=== PATIENT | female | born 1980 | race Caucasian/White ===

== ENCOUNTER 2021-05-22 11:57 | Emergency (ER) | payer OTHER, SELFPAY ==
[2021-05-22 13:40] VITALS: BP 128/83; PULSE 80; RESP 18; TEMP 36.6; O2SAT 98; BMI 38.6
--- NOTE | 2021-05-22 14:01 | HMH.EDUTC ---
[facility] [place] Disposition Clinical Impression: COVID-19 Disposition: Home, Self-Care Condition on Discharge: Good Instructions: DI for COVID-19 (Suspected or Confirmed ), Preventing the Spread of Coronavirus Discharge Instructions Additional Instructions: Drink plenty of fluids. Take tylenol for pain or fever. Return if you begin to have difficulty breathing. Follow up with your regular doctor. GO TO THE ER FOR ANY WORSENING SYMPTOMS Quarantine until you know the results of your covid-19 test. If it is positive, the health department should call you and give you further instructions about your length of Quarantine and other things. Notify your school or workplace of your results and follow their instructions regarding return to work/school. Referrals: Tavia Wray [Primary Care Provider] - Forms: Work/School Release Time of Disposition: 14:12 Medical Decision Making - Medical Records Medical records reviewed: No: I reviewed the patient's medical records. - Alvin Inquiry Pt receiving controlled substance: No Vital Signs: 05/22/21 13:40 05/22/21 14:12 Temperature 97.9 F 97.9 F Temperature Source Oral Pulse Rate 80 Pulse Rate [Right Brachial] 80 Respiratory Rate 18 18 Blood Pressure 128/83 Blood Pressure [Right Arm] 128/83 Blood Pressure Mean [Right Arm] 98 Blood Pressure Source [Right Arm] Automatic Cuff Blood Pressure Position [Right Arm] Sitting 02 Sat by Pulse Oximetry 98 Oxygen Delivery Method Room Air [facility] [place] HPI - General Stated complaint: covid test Time Seen by Provider: 05/22/21 14:02 Mode of Arrival: Ambulatory Source of Information: Patient Limitations: No Limitations Description of Symptoms (Recalled from Triage Doc. by RN): PATIENT TESTED POSITIVE FOR COVID ON 05/12. WANTS RE-TESTED D/T FAMILY COMING IN TO VISIT HEENT Symptoms (Recalled from RN notes): No Resp Symptoms (Recalled from RN notes): No Skin Symptoms (Recalled from RN notes): No MS Symptoms (Recalled from RN notes): No Functional Status (Recalled from RN notes): WNL - History of Present Illness Provider Complaint: She needs to be tested for covid-19. She has been exposed but she denies any symptoms. She has not been vaccinated. - Related Data Allergies Allergy/AdvReac Type Severity Reaction Status Date / Time No Known Allergies Allergy Verified 05/22/21 13:55 - Worker's Comp Is this a Worker's Comp case?: No [facility] History - Hepatitis A Screen Drug use history?: No High risk sexual behaviors?: No History of sexually transmitted infection?: No Currently employed?: No Childcare worker?: No Do you have indoor plumbing?: Yes Do you have electricity?: Yes Attestation statement:: This patient has been screened for Hepatitis A risk factors. I have reviewed the patient's past medical history: Yes ROS Obtained: Yes All systems reviewed & no additional complaints - Constitutional Constitutional: Reports system reviewed and no additional complaints, except as docu - Eyes Eyes: Reports system reviewed and no additional complaints, except as docu - ENT Ears, Nose, Mouth, and Throat: Reports system reviewed and no additional complaints, except as docu - Cardiovascular Cardiovascular: Reports system reviewed and no additional complaints, except as docu - Respiratory Respiratory: Reports system reviewed and no additional complaints, except as docu - Gastrointestinal Gastrointestingal: Reports: system reviewed and no additional complaints, except as docu Physical Exam - General General appearance: alert, in no apparent distress - Head Head exam: atraumatic, normocephalic, normal inspection - Eye Eye exam: Present: normal appearance, PERRL, EOMI - ENT ENT exam: Present: normal exam, normal oropharynx, mucous membranes moist, TM's normal bilaterally, normal external ear exam - Neck Neck exam: Present: normal inspection, full ROM, trachea midline. Absent: meningismus, lymph
[2021-05-22 14:12] VITALS: BP 128/83; PULSE 80; RESP 18; TEMP 36.6; O2SAT 98
--- NOTE | 2021-05-23 11:33 | PC.NURSE ---
Attempted to call pt to inform of positive COVID results, but no answer. Voicemail was full and unable to leave message.
--- NOTE | 2021-05-23 11:47 | PC.NURSE ---
relayed positive covid result to pt.
== END 2021-05-22 14:16 | disposition home or self-care (01) ==
PROVIDERS: Emergency Provider Nurse Practitioner Family; PCP Family Medicine
DX: U07.1 COVID-19 (principal)
CPT/HCPCS: 99202; G0463; U0003

== ENCOUNTER 2022-01-30 16:16 | Emergency (ER) | payer OTHER, SELFPAY ==
--- NOTE | 2022-01-30 16:37 | XR_ITS ---
PROCEDURE INFORMATION: Exam: XR Chest Exam date and time: 01/30/2022 4:32 PM Age: 42 years old Clinical indication: Cough TECHNIQUE: Imaging protocol: XR of the chest. Views: 2 views. COMPARISON: No relevant prior studies available. FINDINGS: Lungs: Unremarkable. No consolidation. Pleural spaces: Unremarkable. No pleural effusion. No pneumothorax. Heart/Mediastinum: Unremarkable. No cardiomegaly. Bones/joints: Unremarkable. IMPRESSION: No acute findings.
[2022-01-30 16:42] VITALS: BP 142/94; PULSE 105; RESP 20; TEMP 37.2; O2SAT 100; BMI 36.8
[2022-01-30 16:49] LABS: UTC Influenza A Antigen Negative (Negative); UTC Influenza B Antigen Negative (Negative)
[2022-01-30 17:06] LABS: Strep Scrn Group A (Rapid) Negative (Negative)
--- NOTE | 2022-01-30 17:32 | HMH.EDUTC ---
[place] Disposition Clinical Impression: Acute bronchitis Qualifiers: Bronchitis organism: unspecified organism Qualified Code(s): J20.9 - Acute bronchitis, unspecified Pharyngitis Qualifiers: Pharyngitis/tonsillitis etiology: unspecified etiology Qualified Code(s): J02.9 - Acute pharyngitis, unspecified Disposition: Home, Self-Care Condition on Discharge: Good Instructions: Acute Bronchitis, DI for Acute Bronchitis Additional Instructions: Drink plenty of fluids. Take tylenol or ibuprofen for pain or fever. Take the medications as directed. Follow up with your regular doctor. GO TO THE ER FOR ANY WORSENING SYMPTOMS Prescriptions: Benzonatate [Benzonatate 100mg cap] 100 mg PO TIDP PRN #30 cap PRN Reason: Cough Transmission Status: Received by [facility]pharm[facility] #[id number] methylPREDNISolone [Medrol] 4 mg PO DIRECTED 6 Days #21 packet Transmission Status: Received by [id number] Azithromycin [Z-Tyrone 250mg Tab*] 250 mg PO UD DOSE PK #6 tab Transmission Status: Received by [id number] Referrals: Tavia Wray [Primary Care Provider] - Forms: Work/School Release Time of Disposition: 17:50 Medical Decision Making - Medical Records Medical records reviewed: No: I reviewed the patient's medical records. - Alvin Inquiry Pt receiving controlled substance: No Vital Signs: 01/30/22 16:42 01/30/22 17:52 Temperature 99.0 F 99.0 F Temperature Source Oral Pulse Rate 80 Pulse Rate [Left] 105 H Respiratory Rate 20 20 Blood Pressure 135/82 Blood Pressure [Right Arm] 142/94 H Blood Pressure Mean [Right Arm] 110 02 Sat by Pulse Oximetry 100 - Lab Data Lab results reviewed: Yes: I reviewed the patient's lab results. Lab Results 01/30/22 16:35: Influenza Type A Ag Negative, Influenza Type B Ag Negative 01/30/22 16:36: Group A Strep Rapid Negative Orders (Tests/Meds): ORDERS Category Date Time Status Covid-19 Nasal PCR ([facility]) Routine Lab 01/30/22 17:52 Received Strep Screen Confirmation Stat Micro 01/30/22 16:36 Received [place] HPI - General Stated complaint: SOA;Sore Throat;Fatigued;Pain in lower lung area Time Seen by Provider: 01/30/22 17:32 Mode of Arrival: Ambulatory Source of Information: Patient Limitations: No Limitations Description of Symptoms (Recalled from Triage Doc. by RN): pt is here due to symtpoms starting tuesday. chills, congestion, coughing up phlem, she states that she feels like she is swallowing razors and walking pneumonia. HEENT Symptoms (Recalled from RN notes): Yes Resp Symptoms (Recalled from RN notes): Yes Skin Symptoms (Recalled from RN notes): No MS Symptoms (Recalled from RN notes): No Functional Status (Recalled from RN notes): wnl - History of Present Illness Provider Complaint: She c/o sore throat, chills and chest tigntness for the past 2 days. - Related Data Previous Rx's Medication Instructions Recorded Azithromycin [Z-Tyrone 250mg Tab*] 250 mg PO UD DOSE PK #6 tab 01/30/22 Benzonatate [Benzonatate 100mg 100 mg PO TIDP PRN #30 cap 01/30/22 cap] methylPREDNISolone [Medrol] 4 mg PO DIRECTED 6 Days #21 01/30/22 packet Allergies Allergy/AdvReac Type Severity Reaction Status Date / Time No Known Allergies Allergy Verified 05/22/21 13:55 - Worker's Comp Is this a Worker's Comp case?: No [facility] History - Hepatitis A Screen Attestation statement:: This patient has been screened for Hepatitis A risk factors. I have reviewed the patient's past medical history: Yes ROS Obtained: Yes All systems reviewed & no additional complaints - Constitutional Constitutional: Reports as per HPI - Eyes Eyes: Denies eye discharge - ENT Ears, Nose, Mouth, and Throat: Reports as per HPI - Cardiovascular Cardiovascular: Denies chest pain - Respiratory Respiratory: Reports chest congestion, Reports cough, Denies dyspnea, Denies stridor, Denies wheezing - Gastrointestinal Gastrointestingal: Denies
[2022-01-30 17:52] VITALS: BP 135/82; PULSE 80; RESP 20; TEMP 37.2
== END 2022-01-30 17:56 | disposition home or self-care (01) ==
PROVIDERS: Emergency Provider Nurse Practitioner Family; PCP Family Medicine
DX: J20.9 Acute bronchitis, unspecified (principal)
CPT/HCPCS: 71046; 87430; 87804; 99212; C9803; G0463; U0003; U0005

== ENCOUNTER 2023-10-22 09:28 | Emergency (ER) | payer OTHER, SELFPAY ==
[2023-10-22 09:40] VITALS: BP 137/92; PULSE 87; RESP 18; TEMP 36.4; O2SAT 95; BMI 34.1
--- NOTE | 2023-10-22 09:50 | EXP.UTC ---
Discharge Plan Disposition Patient Disposition: Home, Self-Care Condition: Good Prescriptions Prescriptions: New amoxicillin [amoxicillin] 500 mg tablet 500 mg PO BID 10 Days Qty: 20 0RF rpsocozj-hbsutpiyk-UT 3.5-10,000-1 mg/mL-unit/mL-% drops,suspension 4 drp otic (ear) Q8H Qty: 10 0RF Rx Instructions: to left ear No Action azithromycin 250 mg tablet See Rx Instructions .ROUTE .COMPLEX Rx Instructions: see zpak dose promethazine 25 mg tablet See Rx Instructions .ROUTE .COMPLEX Patient Comments: TAKE 1/2 TABLET TO 1 TABLET BY MOUTH EVERY 6 HOURS NEEDED FOR NAUSEA AND VOMITING Rx Instructions: TAKE 1/2 TABLET TO 1 TABLET BY MOUTH EVERY 6 HOURS NEEDED FOR NAUSEA AND VOMITING lisdexamfetamine [Vyvanse] 20 mg capsule 20 mg PO DAILY Referrals Follow up/Referrals: Tavia Wray [Primary Care Provider] - See instructions Activity Restrictions/Add. Instructions Additional Instructions/Restrictions: Start antibiotic as soon as possible and be sure to take as ordered for full length of time even though he should start feeling better in 24-48 hours. Tylenol or Motrin as needed for pain or fever Encourage fluids, water, Gatorade, Powerade, Pedialyte if infant/toddler/child Warm compresses often helps when placed over ear Return immediately for new or worsening symptoms no noticeable improvement in 48-72 hours and in 10-14 days to ensure the ears are return to baseline. Follow-up with primary care stop zpak start amoxicillin Clinical Impressions Clinical Impression: Otitis media Qualifiers: Otitis media type: suppurative Chronicity: acute Laterality: left Recurrence: non-recurrent Spontaneous tympanic membrane rupture: without spontaneous rupture Qualified Code(s): H66.002 - Acute suppurative otitis media without spontaneous rupture of ear drum, left ear Instructions Patient Instructions: Middle Ear Infection Discharge ED Provider: Jeffrey ([facility])[place] [facility] [place] General Stated complaint: left ear pain sinus pressure st nausea Mode of Arrival: Ambulatory Source of Information: Patient Limitations: No Limitations Time Seen by Provider: 10/22/23 09:50 Description of Symptoms (Recalled from Triage Doc. by RN): Pt stated that she started to feel nauseous on tuesday and went to PCP. Was tested for strep and negative. She was but on zpak and phenergan. She stated that her left ear feels like it will bust with pressure. She has sinus pressure. HEENT Symptoms (Recalled from RN notes): Yes Resp Symptoms (Recalled from RN notes): No Skin Symptoms (Recalled from RN notes): No MS Symptoms (Recalled from RN notes): No Functional Status (Recalled from RN notes): n/a History of Present Illness Provider Complaint: 43 yr old female presents for left pain/pressure, sinus pressure, and nausea since . seen pcp and was given zpak and Phenergan. pt states the pain and pressure in her ear has worsen. Related Data Home Medications Medication Instructions Recorded Confirmed azithromycin 250 mg tablet See Rx Instructions .Route .COMPLEX 10/22/23 10/22/23 lisdexamfetamine 20 mg capsule 20 mg PO DAILY 10/22/23 10/22/23 (Vyvanse) promethazine 25 mg tablet See Rx Instructions .Route .COMPLEX 10/22/23 10/22/23 Previous Rx's Medication Instructions Recorded amoxicillin 500 mg tablet 500 mg PO BID 10 days #20 tabs 10/22/23 avmqrcnw-ykpdikanf-loepzavzr 3.5 4 drp otic (ear) Q8H #10 mL 10/22/23 mg-10,000 unit/mL-1 % ear drops,susp Allergies Allergy/AdvReac Type Severity Reaction Status Date / Time No Known Allergies Allergy Verified 10/22/23 09:50 Worker's Comp Is this a Worker's Comp case?: No [facility] Disclaimer: The information contained in this section may have been updated after the patient was seen, as this information can be updated by other users. Social History , [employer]) Smoking Status: Never smoker alcohol intake: never current occupational status: employed Travel in the last 8 weeks: None ROS Obtained: Yes All systems reviewed & no additional complaints except as documented Constitutional Constitutional: Reports system reviewed and no additional complaints, except as documented Eyes Eyes: Reports system reviewed and no additional complaints, except as documented ENT Ears, Nose, Mouth, and Throat: Reports system reviewed and no additional complaints, except as documented, Reports as per HPI, Reports otalgia, Reports nasal congestion, Reports post nasal drip, Reports sinus pain and Reports sinus pressure Cardiovascular Cardiovascular: Reports system reviewed and no additional complaints, except as documented Respiratory Respiratory: Reports system reviewed and no additional complaints, except as documented Gastrointestinal Gastrointestingal: Reports system reviewed and no additional complaints, except as documented Musculoskeletal Musculoskeletal: Reports system reviewed and no additional complaints, except as documented Integumentary/Breasts Skin/Breast: Reports system reviewed and no additional complaints, except as documented Endocrine Endocrine: Reports system reviewed and no additional complaints, except as documented Physical Exam General General appearance: alert and in no apparent distress Head Head exam: atraumatic and normocephalic Eye Eye exam: Present normal appearance ENT ENT exam: Present mucous membranes moist Expanded ENT Exam TM/Canal exam: Left TM: erythema, bulging, effusion and loss of landmarks Nose exam: Present sinus tenderness Respiratory Respiratory exam: Present normal lung sounds bilaterally Cardiovascular Cardiovascular exam: Present regular rate and normal rhythm Neurological Exam Neurological exam: Present alert and oriented X3 Medical Decision Making Medical Records Medical records reviewed: Yes I reviewed the patient's medical records. Alvin Inquiry Pt receiving controlled substance: No Alvin was queried for this patient: No Vital Signs: 10/22/23 09:40 Temperature 97.6 F Temperature Source Oral Pulse Rate [Right Radial] 87 Respiratory Rate 18 Blood Pressure [Right Arm] 137/92 H Blood Pressure Mean [Right Arm] 107 Blood Pressure Source [Right Arm] Automatic Cuff Blood Pressure Position [Right Arm] Sitting 02 Sat by Pulse Oximetry 95 Oxygen Delivery Method Room Air
[2023-10-22] MEDS: DEXAMETHASONE 4MG/ML 1ML VIAL 4 MG IM (10:02)
[2023-10-22 10:20] VITALS: BP 137/92; PULSE 87; RESP 18; TEMP 36.4; O2SAT 95
== END 2023-10-22 10:20 | disposition home or self-care (01) ==
PROVIDERS: Emergency Provider Nurse Practitioner Family; PCP Family Medicine
DX: H66.002 Acute suppurative otitis media without spontaneous rupture of ear drum, left ear (principal); R09.81 Nasal congestion; R09.82 Postnasal drip; R11.0 Nausea
CPT/HCPCS: 96372; 99212; 99214; G0463

== ENCOUNTER 2025-03-18 09:22 | Outpatient (CLI) | payer OTHER, SELFPAY ==
--- NOTE | 2025-03-18 09:30 | US_ITS ---
PROCEDURE: US TRANSVAGINAL CLINICAL INDICATION: uterine fibroids COMPARISON: MR OPEN MR PELVIS WO from 02/15/2025 FINDINGS: Transvaginal sonographic images of the pelvis were obtained. UTERUS: 10.4cm x 6.3cmx 4.5cm anteverted with a combined endometrial thickness of 11.1mm. There are 2 nabothian cysts in the cervix measuring 1 cm and 1.3 cm. There is a fibroid within the uterus that measures 2.3 cm x 2.2 cm x 1.7 cm There is a 2nd posterior fibroid measuring 1.9 cm x 1.8 cm x 1.7 cm. LEFT OVARY: 2.7 cmx1.6 cmx2.2cm with a volume of 5ml. RIGHT OVARY: 4.2cmx 2.0cmx1.5cm with a volume of 6.4ml. There are 2 follicles in the right ovary measuring 1.3 cm and 1.1 cm. Both ovaries are seen and appear normal. Doppler flow to both ovaries are seen. There is no fluid in the cul-de-sac. IMPRESSION: 1. Anteverted, enlarged uterus containing at least 2 fibroids. They measure 2.3 cm and 1.9 cm. The endometrium measures 11.1 mm. 2. Both ovaries are seen and appear normal. The right ovary contains 2 follicles, the largest of which measures 1.3 cm. 3. No fluid in the cul-de-sac. Dictated by: Aram Mccoy MD 03/18/2025 15:28 Aram Mccoy MD in [place] 03/18/2025 15:28
== END 2025-03-18 23:59 | disposition home or self-care (01) ==
LOC: RAD 09:23
PROVIDERS: PCP Family Medicine; Visit Provider Obstetrics & Gynecology
DX: D25.9 Leiomyoma of uterus, unspecified (principal); N83.01 Follicular cyst of right ovary
CPT/HCPCS: 76830

== ENCOUNTER 2025-05-01 12:09 | Outpatient (CLI) | payer OTHER, SELFPAY ==
[2025-05-01 10:58] VITALS: BMI 31.4
--- NOTE | 2025-05-01 12:34 | ECG_ITS ---
APPROVED REPORT Exam: Resting ECG HR:62 bpm ECG Measurements Heart Rate 62 AXES UT 143 P 44 QRSd 96 QRS 12 QT 425 T 28 QTc 429 Conclusion SINUS RHYTHM WITH SINUS ARRHYTHMIA LOW QRS VOLTAGE IN PRECORDIAL LEADS [QRS DEFLECTION < 1.0 mV IN CHEST LEADS] BORDERLINE ECG UNCONFIRMED REPORT Electronically signed by : Bubba Amaral MD 05/02/2025 09:00:26
[2025-05-01 13:06] LABS: Hematocrit 38.3 % (37.0-47.0); Hemoglobin 12.1 g/dL (12.2-16.2); Immature Granulocytes % 0.1 %; Mean Corpuscular HGB Conc 31.6 g/dL (31.8-35.4); Mean Corpuscular Hemoglobin 26.6 pg (27.0-31.2); Mean Corpuscular Volume 84.2 fl (81-99); Nucleated Red Blood Cells % 0 %; Platelet Count 393 K/mm3 (142-424); Red Blood Count 4.55 M/mm3 (4.20-5.40); Red Cell Distribution Width-SD 46.2 fL; White Blood Count 6.9 K/mm3 (4.8-10.8)
[2025-05-01 13:31] LABS: Anion Gap 10.6 mEq/L (5-15); Blood Urea Nitrogen 8 mg/dl (7-17); Calcium 8.9 mg/dl (8.4-10.2); Carbon Dioxide 26 mmol/L (22.0-30.0); Chloride 106 mmol/L (98-107); Creatinine Clearance Estimated 188 mL/min (50-200); Creatinine,Serum 0.50 mg/dl (0.52-1.04); Estimated Glomerular Filt Rate 132 ml/min (>60); GFR (African American) 160 ML/MIN (>60); Glucose 86 mg/dl (74-100); Potassium 4.6 mmoL/L (3.5-5.1); Sodium 138 mmol/L (136-145)
[2025-05-01 13:33] LABS: HCG Qualitative, Serum Negative (Negative)
== END 2025-05-01 23:59 | disposition home or self-care (01) ==
LOC: PREOP 12:10
PROVIDERS: PCP Family Medicine; Visit Provider Obstetrics & Gynecology
DX: Z01.810 Encounter for preprocedural cardiovascular examination (principal); Z01.812 Encounter for preprocedural laboratory examination; I49.8 Other specified cardiac arrhythmias; R94.31 Abnormal electrocardiogram [ECG] [EKG]
CPT/HCPCS: 36415; 80048; 84703; 85025; 93005

== ENCOUNTER 2025-05-08 08:22 | Day surgery (SDC) | payer OTHER, SELFPAY ==
[2025-05-02 08:43] VITALS: BMI 31.4
[2025-05-08] VITALS (22 sets, daily range): BP systolic 101–140; BP diastolic 56–81; PULSE 58–90; RESP 12–20; TEMP 36.1–43; O2SAT 92–100; BMI 31.4
[2025-05-08] MEDS: LACTATED RINGERS 1000ML 1,000 ML 25 ML IV (10:14)
[2025-05-08] MEDS: ACETAMINOPHEN 500MG TAB 1000 MG PO (10:36)
[2025-05-08] MEDS: CELECOXIB 100MG CAPSULE 400 MG PO (10:38)
[2025-05-08] MEDS: GABAPENTIN 600MG TABLET 300 MG PO (10:41)
--- NOTE | 2025-05-08 11:06 | EXP.ANES.CKL ---
[facility] Disclaimer: The information contained in this section may have been updated after the patient was seen, as this information can be updated by other users. Medical History Hx of lipoma Hx of endometriosis History of depression History of anxiety Surgical History History of surgery Personal history of gastric banding History of placement of ear tubes Family History Other Family history of atrial fibrillation Family history of diabetes mellitus Family history of heart disease Family history of hypertension Social History (Updated 05/08/25 @ 10:00 by Tracy Murphy RN) Smoking Status: Never smoker alcohol intake: never substance use type: denies use current occupational status: employed Travel in the last 8 weeks?: [place] the [place] [facility] Anesthesia Checklist Patient Identification Patient Identification: Arm Band and Verbal (Name & ) Structural Data Admitted From: Home Planned Operative Procedure/s: TVH w/ BSO, possible DORINA, cystoscopy, Nexplannon removal Consent for Planned Operative Procedure(s) Verified: Yes Verified Documents: Surgical Consent Chart Verification Results Verified: CBC Additional verifications Anesthesia Reactions: No Hx Blood Transfusions: No Blood Transfusion Reaction: No Airway Assessment Mallampati Score:: Class II C-Spine Mobility Assessed: Yes TMJ Mobility Assessed: Yes Dentition: Good Dentition Neurological Assessment Level of Consciousness: Awake, Alert and Appropriate Hx Seizures: No Numbness or tingling in extremities: Yes (Occasional numbness in L arm) Anesthesia Plan Anesthesia Risk discussed: Yes Anesthesia Plan: Verified ASA Class: II Anesthesia Type: General
[2025-05-08] MEDS: METRONIDAZ/SOD CHL 500 MG/100 ML PIGGYBACK 100 MG IV (11:30)
[2025-05-08] MEDS: METHYLENE BLUE 0.5% 10ML AMPULE 10 MG IV (11:50)
[2025-05-08] MEDS: LIDOCAINE 1% W/EPI 1:100,000 20ML VIAL 20 ML IJ (12:00)
--- NOTE | 2025-05-08 13:33 | EXP.ANES.I ---
[facility] Anesthesia Record Part I Anesthesia Record I Intake, IV Amount: 1,500 Hydration: Adequate Estimated blood loss (mL): 50 Urine output (mL): 0 Blood Products used (#): none Blood Pressure: 120/71 SaO2: 93 Pulse Rate: 87 Airway Patency: Patent Respiratory Rate: 12 Temperature: 98.6 F Patient is:: Drowsy and Stable Stable to PACU at:: 13:26
[2025-05-08] MEDS: HYDROMORPHONE 2MG/ML SYRINGE 0.5 MG IV ×2 (13:49→14:11)
--- NOTE | 2025-05-08 13:58 | P.OP_ITS ---
Date of procedure: 05/08/25 Pre-op Diagnosis:: 1. Abnormal uterine bleeding 2. Heavy uterine bleeding 3. Dysmenorrhea Post-op Diagnosis:: 1. Abnormal uterine bleeding 2. Heavy uterine bleeding 3. Dysmenorrhea Procedure performed:: 1. Total vaginal hysterectomy 2. Bilateral salpingo-oophorectomy 3. Cystoscopy 4. Nexplanon removal Surgeon:: Candie Velázquez DO Database Tester(s):: Aram Mccoy MD BACK GRAY CLOTH WASHER:: Cruz Cabral Anesthesia: GETA Estimated blood loss (mL): 50 Operative findings:: Uterine EUA was significant for 8wk size uterus with regular borders at the fundus. Grade 2 uterine descent was appreciated. No gross adnexal masses were appreciated. Nexplanon easily palpable Cystoscopy showed bilateral brisk ureteral reflux Operative note:: Pt was taken back to the OR where GETA was obtained without difficulty. SCDs were placed and found to be working. The patient was placed in dorsal lithotomy position using yellowfin stirrups. The vagina was prepped and draped in the normal sterile fashion. An in and out catheter was used to drain the bladder and 20 mL of methylene blue and normal saline were inserted into the bladder. A weighted speculum and Blaine were used to visualize the cervix. Two Myles tenaculums were used to grasp the anterior and posterior ectocervix on the right and left. The scalpel was used to make a circumferential incision at the cervicovaginal junction. A raytec was used to bluntly dissect the paracervical fascia from the cervix off the vaginal mucosa. Metzenbaum scissors and pickups were used to enter the colpotomy posteriorly and a long weighted speculum was placed. Abdominal entry was confirmed by the presence of the ovary and omentum. The left uterosacral ligament was grasped with a avinash clamp, cut, and suture ligated with 0-Vicryl. This was tagged for later incorporation to the cuff. This process was repeated on the contralateral side. The anterior vaginal tissue was further dissected off the cervix. Pickups and Metzenbaum scissors were used to make the anterior colpotomy. A [place] retractor was placed. Entry to the abdominal cavity was confirmed with the presence of omentum and the left ovary was visualized. Hysterectomy [place] clamps were used serially worked my way up the uterus first clamped, cutting, and suture-ligated in the cardinals bilaterally followed by the broad ligament remaining proximal to the uterine body bilaterally. The uterus was rotated posteriorly and the final attachments to the round ligament were bilaterally clamped, cut, and suture-ligated with 0 Vicryl. This stitch was used to identify the ovaries. The Enseal bipolar coagulation device was used to transect the ovary and fallopian tube bilaterally remaining distal from the bowel. The bowel was retracted with a lap sponge placed vaginally. Bilateral ovaries were coagulated and transected. Full specimen was passed off the operative field to be sent to pathology for further evaluation. Hemostasis was noted. The posterior peritoneum was fixed to the posterior vaginal cuff with a running locking stitch. 0-PDS was used to place a Griffin stitch for the culdoplasty, incorporating the bilateral uterosacral ligaments. The anterior peritoneum was grasped with an Dee clamp and pursestringed closed. The vaginal cuff was then closed with 0 Vicryl in a running locking fashion. Griffin culdoplasty was tied to suspend the apex of the vagina. Hemostasis was noted. Cystoscopy Cystoscopy was performed with a 70 degree cystoscope and distended with normal saline. Inspection of the bladder showed a normal-looking, blue dyed, smooth bladder mucosa with no evidence of injury, suture, puckering, or other abnormalities.? Both ureteral meatuses were visualized and were noted to be expelling urine in routine fashion.? Cystoscope was removed. Nexplanon removal Inner aspect of left upper extremity prepped with betadine Optimal removal location identified and marked 3cc lidocaine with epi injected subcutaneous in marked location small 5mm incision made and device removed with ease EBL: none Sponge, instrument and needle counts were correct x3, per nursing. The patient was awakened from general anesthesia and transferred to the PACU in stable condition. Condition: stable Disposition: floor Specimens:: Uterine body, cervix, bilateral fallopian tubes and ovaries. Nexplanon discarded Complications:: None
[2025-05-08] MEDS: ESTRADIOL VALERATE 20 MG/ML VIAL IM (14:29)
--- NOTE | 2025-05-08 15:40 | SUR.PHASEII ---
1455: Pt ambulated to restroom per this nurse. Attempted to void. No voiding at this time.
--- NOTE | 2025-05-08 15:40 | SUR.PHASEII ---
1525: Dr. Velázquez at bedside. Verbal order to bladder scan given if pt is unable to void.
--- NOTE | 2025-05-08 15:41 | SUR.PHASEII ---
pt voided. not much urine noted. dr brownlee notified. asked to get bladder scanner and let her know.
--- NOTE | 2025-05-08 16:29 | SUR.PHASEII ---
notified dr brownlee not urine noted with bladder scanner. telephone order to give 1l lr and order cbc and bmp.
[2025-05-08] MEDS: LACTATED RINGERS 1000ML 1,000 ML 999 ML IV (16:49)
[2025-05-08 17:04] LABS: Hematocrit 36.1 % (37.0-47.0); Hemoglobin 11.4 g/dL (12.2-16.2); Immature Granulocytes % 0.2 %; Mean Corpuscular HGB Conc 31.6 g/dL (31.8-35.4); Mean Corpuscular Hemoglobin 26.8 pg (27.0-31.2); Mean Corpuscular Volume 84.7 fl (81-99); Nucleated Red Blood Cells % 0 %; Platelet Count 320 K/mm3 (142-424); Red Blood Count 4.26 M/mm3 (4.20-5.40); Red Cell Distribution Width-SD 45.5 fL; White Blood Count 12.5 K/mm3 (4.8-10.8)
[2025-05-08 17:08] LABS: Chloride 104 mmol/L (98-107); Potassium 3.7 mmoL/L (3.5-5.1); Sodium 137 mmol/L (136-145)
[2025-05-08 17:11] LABS: Blood Urea Nitrogen 12 mg/dl (7-17); Creatinine Clearance Estimated 157 mL/min (50-200); Creatinine,Serum 0.60 mg/dl (0.52-1.04); Estimated Glomerular Filt Rate 107 ml/min (>60); GFR (African American) 130 ML/MIN (>60)
[2025-05-08 17:12] LABS: Anion Gap 11.7 mEq/L (5-15); Calcium 8.5 mg/dl (8.4-10.2); Carbon Dioxide 25 mmol/L (22.0-30.0); Glucose 121 mg/dl (74-100)
--- NOTE | 2025-05-08 17:18 | SUR.PHASEII ---
notified dr brownlee of lab results. also notified her pt voided 100ml. dr brownlee states pt can go home.
[2025-05-09 08:53] VITALS: BP 113/68; PULSE 75; RESP 20; TEMP 36.3; O2SAT 95
--- NOTE | 2025-05-09 08:53 | EXP.ANES.II ---
[facility] Anesthesia Record Part II Anesthesia Record Part II Discharge Time: 14:16 Destination: [facility] Day [facility] (OP Surgery) PACU nurse assessment reviewed?: Yes Patient Condition:: Good Anesthesia Complications:: None Swallowing reflex intact?: Yes Airway Patency: Patent Cyanosis?: No Blood Pressure: 113/68 SaO2: 95 Respiratory Rate: 20 Pulse Rate: 75 Temperature: 97.3 F Mental Status: Alert & Oriented Pain level:: 4 Nausea and/or vomitting:: None Intake, IV Amount: 0 Hydration: Adequate
== END 2025-05-08 17:34 | disposition home or self-care (01) ==
PROVIDERS: PCP Family Medicine; Visit Provider Obstetrics & Gynecology
PROC: (CPT 11982; principal; 2025-05-08 10:00)
DX: D25.1 Intramural leiomyoma of uterus (principal); N93.9 Abnormal uterine and vaginal bleeding, unspecified; N94.6 Dysmenorrhea, unspecified; Z30.46 Encounter for surveillance of implantable subdermal contraceptive
CPT/HCPCS: 11982; 58262; 36415; 80048; 85025; 88307; 96374; J0690; J1171; J1380; J1836; J1885; J2003; J2004; J2250; J2704; J3010; J7120

== ENCOUNTER 2025-05-08 09:03 | Outpatient (CLI) | payer OTHER, SELFPAY | END 2025-05-08 23:59 | disposition home or self-care (01) | LOC: LAB.DROPOF 05-09 09:04 | PROVIDERS: PCP Family Medicine; Visit Provider Obstetrics & Gynecology | DX: D25.9 Leiomyoma of uterus, unspecified (principal) | CPT/HCPCS: J2004 ==